=== PATIENT | male | born 1975 | race Caucasian/White ===

== ENCOUNTER 2019-12-03 18:26 | Emergency (ER) | payer BC ==
[~2019-12-03] VITALS: Ht 182.9 cm; Wt 95.5 kg
[2019-12-03 18:45] VITALS: Ht 182.9 cm; Wt 95.5 kg
[2019-12-03] MEDS ORDERED: CELEXA40 MG PO (18:47)
[2019-12-03] MEDS ORDERED: BAYER CHEWABLE81 MG PO (18:47)
[2019-12-03] MEDS ORDERED: LISINOPRIL10 MG PO (18:48)
[2019-12-03] MEDS ORDERED: FLUTICASONE PRO16 GM NASAL (18:48)
[2019-12-03] MEDS ORDERED: LOPRESSOR25 MG PO (18:48)
[2019-12-03] MEDS ORDERED: ZETIA10 MG PO (18:49)
[2019-12-03] MEDS ORDERED: TRAZODONE HCL50 MG PO (18:49)
[2019-12-03] MEDS ORDERED: LIPITOR80 MG PO (18:49)
[2019-12-03] MEDS ORDERED: EFFIENT10 MG PO (18:49)
[2019-12-03] MEDS ORDERED: GABAPENTIN300 MG PO (18:50)
[2019-12-03] MEDS ORDERED: LASIX20 MG PO (18:50)
[2019-12-03] MEDS ORDERED: ZANAFLEX4 MG PO (18:50)
[2019-12-03] MEDS ORDERED: NITROSTAT0.4 MG SL (18:51)
[2019-12-03] MEDS ORDERED: KLOR-CON 1010 MEQ PO (18:51)
[2019-12-03] MEDS ORDERED: ULTRAM50 MG PO ×2 (18:51→21:16)
[2019-12-03 19:38] LABS: BILIRUBIN NEGATIVE (NEGATIVE); KETONE NEGATIVE (NEGATIVE); NITRITE NEGATIVE (NEGATIVE); UROBILINOGEN NORMAL mg/dL (< 2)
[2019-12-03 19:40] LABS: BASOPHILS 0.9 % (0-2); EOSINOPHILS 1.8 % (0-7); HEMATOCRIT 46.6 % (42.0-54.0); HEMOGLOBIN 15.5 g/dL (13.5-17.5); IMMATURE GRANULOCYTES 0.4 % (0-5); LYMPHOCYTES 34.5 % (15-50); MCH 30.5 pg (26.0-34.0); MCHC 33.3 g/dL (31.0-37.0); MCV 91.6 fL (80.0-100.0); MEAN PLATELET VOLUME 9.8 fL (7.4-10.4); MONOCYTES 10.6 % (2-11); NEUTROPHILS 51.8 % (40-80); PLATELET COUNT 285 10x3/uL (130-400); RBC 5.09 10x6/uL (4.20-6.10); RDW 12.6 % (11.5-14.5); WBC 11.6 10x3/uL (4.8-10.8)
[2019-12-03 19:47] LABS: ANION GAP 9.1 mmol/L (8-16); CALCIUM 9.2 mg/dL (8.5-10.1); CARBON DIOXIDE 26.7 mmol/L (21.0-32.0); CREATININE - SERUM 1.5 mg/dL (0.6-1.3); POTASSIUM - SERUM 3.8 mmol/L (3.5-5.1)
[2019-12-03 19:53] LABS: ALBUMIN 3.9 g/dL (3.4-5.0); BILIRUBIN - TOTAL 0.32 mg/dL (0.2-1.3); PROTEIN - SERUM 6.8 g/dL (6.4-8.2)
[2019-12-03] MEDS ORDERED: TORADOL10 MG PO (21:16)
[2019-12-03 21:28] VITALS: BP 116/62
== END 2019-12-03 21:27 | disposition home or self-care (01) ==
LOC: D.ER 18:26
PROVIDERS: Family Medicine
DX: N20.0 Calculus of kidney (principal); R10.9 Unspecified abdominal pain; I25.2 Old myocardial infarction; Z72.0 Tobacco use